=== PATIENT | male | born 1960 | race Caucasian/White ===

== ENCOUNTER 2018-02-25 06:45 | Day surgery (SDC) | payer BC ==
[2018-02-25] MEDS ORDERED: ceFAZolin 2 GM/SWFI 2 GM/20 ML SYR IVP ONE (06:49)
[2018-02-25] MEDS ORDERED: LR 1,000 ML IV ONE (06:52)
[2018-02-25] MEDS ORDERED: LIDOCAINE 1% 2 ML INJ ID PRN (06:52)
[2018-02-25] MEDS ORDERED: BUPIVACAINE 0.5% 30 ML SDV ONE (07:16)
--- NOTE | 2018-02-25 07:17 | PDHPUP ---
History & Physical Update H&P update statement: This history and physical update is based on an assessment of the patient which was completed after admission or registration (within 24 hours), but prior to the surgery/procedure. H&P update: H&P reviewed & patient examined, no change in patient's condition since H&P completed
[2018-02-25] MEDS ORDERED: fentaNYL 100 MCG/2 ML INJ ONE (07:40)
[2018-02-25] MEDS ORDERED: MIDAZOLAM 2 MG/2 ML VIAL ONE (07:41)
[2018-02-25] MEDS ORDERED: PROPOFOL/EMULSION 500 MG/50 ML BOTTLE IV ONE (07:41)
[2018-02-25] MEDS ORDERED: ROCURONIUM 50 MG/5 ML VIAL ONE (07:52)
[2018-02-25] MEDS ORDERED: SUGAMMADEX SODIUM 200 MG/2 ML VIAL IVP ONE (07:52)
[2018-02-25] MEDS ORDERED: DEXAMETHASONE 4 MG/ML VIAL ONE (07:52)
[2018-02-25] MEDS ORDERED: METOCLOPRAMIDE 10 MG/2 ML VIAL ONE (07:52)
[2018-02-25] MEDS ORDERED: KETOROLAC 30 MG/1 ML SDV ONE (07:52)
[2018-02-25] MEDS ORDERED: ONDANSETRON 4 MG/2 ML VIAL ONE (07:52)
[2018-02-25] MEDS ORDERED: LIDOCAINE 2% 5 ML SDV ONE (07:52)
[2018-02-25] MEDS ORDERED: fentaNYL 100 MCG/2 ML INJ IVP PRN (08:23)
[2018-02-25] MEDS ORDERED: DEXAMETHASONE 4 MG/ML VIAL IVP PRN (08:23)
[2018-02-25] MEDS ORDERED: ALBUTEROL 3 ML DEYVIAL IH PRN (08:23)
[2018-02-25] MEDS ORDERED: DIAZEPAM 5 MG/ML 1 ML SYR IVP PRN (08:23)
[2018-02-25] MEDS ORDERED: PROMETHAZINE HCL 25 MG/ML INJ IVP PRN (08:23)
[2018-02-25] MEDS ORDERED: METOCLOPRAMIDE 10 MG/2 ML VIAL IVP PRN (08:23)
[2018-02-25] MEDS ORDERED: LR 500 ML IV PRN (08:23)
[2018-02-25] MEDS ORDERED: HYDROCODONE/APAP 5/325 TAB PO PRN (08:23)
[2018-02-25] MEDS ORDERED: ONDANSETRON 4 MG/2 ML VIAL IVP PRN (08:23)
[2018-02-25] MEDS ORDERED: NALOXONE HCL 0.4 MG/ML INJ IVP PRN (08:23)
[2018-02-25] MEDS ORDERED: ACETAMINOPHEN 500 MG TAB PO PRN (08:23)
--- NOTE | 2018-02-25 08:23 | PDANEPAE ---
ANE Past Medical History - Cardiovascular History Hx Hypertension: Yes Hx Arrhythmias: No Hx Chest Pain: No Hx Coronary Artery / Peripheral Vascular Disease: No Hx CHF / Valvular Disease: No Hx Palpitations: No - Pulmonary History Hx COPD: No Hx Asthma/Reactive Airway Disease: No Hx Recent Upper Respiratory Infection: No Hx Oxygen in Use at Home: No Hx Sleep Apnea: No Sleep Apnea Screening Result - Last Documented: Positive - Neurologic History Hx Cerebrovascular Accident: No Hx Seizures: No Hx Dementia: No - Endocrine History Hx Diabetes: No - Renal History Hx Renal Disorders: No - Liver History Hx Hepatic Disorders: No - Neurological & Psychiatric Hx Hx Neurological and Psychiatric Disorders: No - Cancer History Hx Cancer: No - Congenital Disorder History Hx Congenital Disorders: No - GI History Hx Gastrointestinal Disorders: No - Other Health History Other Health History: none - Chronic Pain History Chronic Pain: No - Surgical History Prior Surgeries: none ANE Review of Systems Review of Systems: - Exercise capacity METS (RN): 5 METS ANE Patient History - Allergies Allergies/Adverse Reactions: No Known Allergies Allergy (Verified 02/23/18 14:15) - Home Medications Home Medications: Hydrocodone Bit/Acetaminophen [Vicodin 5/500] 02/23/18 [Last Taken Unknown] Lisinopril 02/23/18 [Last Taken 02/23/18] - NPO status NPO Since - Liquids (Date): 02/24/18 NPO Since - Liquids (Time): 22:00 NPO Since - Solids (Date): 02/24/18 NPO Since - Solids (Time): 19:30 - Smoking Hx Smoking Status: Never smoked - Family Anes Hx Family Hx Anesthesia Complications: none ANE Labs/Vital Signs - Vital Signs Blood Pressure: 147/98 Heart Rate: 67 Respiratory Rate: 16 O2 Sat (%): 94 Height: 182.88 cm Weight: 81.647 kg ANE Physical Exam - Airway Neck exam: FROM Mallampati Score: Class 1 Mouth exam: normal dental/mouth exam - Pulmonary Pulmonary: no respiratory distress, no rales or rhonchi, clear to auscultation - Cardiovascular Cardiovascular: no murmur, rub, or gallop - ASA Status ASA Status: II ANE Anesthesia Plan Anesthesia Plan: general endotracheal anesthesia
[2018-02-25] MEDS ORDERED: LIDOCAINE HCL 160 MG/4 ML LTA KIT TP ONE (08:40)
[2018-02-25] MEDS ORDERED: ENALAPRILAT DIHYDRATE 1.25 MG/ML VIAL ONE (08:40)
--- NOTE | 2018-02-25 09:07 | POSTOPPROG ---
Post Op Note Date of Operation: 02/25/18 Surgeon: Musa Santos Electrical Controls Technician: Rl Anesthesiologist: Elba Anesthesia: GET(General Endotracheal) Pre-op Diagnosis: Left inguinal hernia Post-op Diagnosis: Bilateral inguinal hernias Indication: Pain Procedure: Laparoscopic BIH Findings: Bilateral direct inguinal hernias Inf/Abcess present in the surg proc area at time of surgery?: No Depth: Organ Space EBL: Minimal
--- NOTE | 2018-02-25 09:54 | POSTANESTH ---
Post Anesthetic Evaluation Cardiovascular Status: Normal, Stable, Similar to Pre-Op Cond Respiratory Status: Normal, Stable, Similar to Pre-op Cond. Level of Consciousness/Mental Status: Can Participate in Eval Pain Control: Adequate, Prn Tx Ordered Nausea/Vomiting Control: Adequate, Prn Tx Ordered Complications Possibly Related to Anesthesia: None Noted
[2018-02-25] MEDS ORDERED: HYDROCODONE/APAP 5/325 TAB ONE (10:37)
[2018-02-25 11:06] VITALS: BP 134/76
--- NOTE | 2018-02-27 18:00 | GOP ---
[f rep st] OPERATIVE REPORT DATE OF OPERATION: SURGEON: Musa Santos MD EMT: Lenka Shine, Nurse Practitioner. ANESTHESIOLOGIST: DR. Arreola. PREOPERATIVE DIAGNOSIS: Left inguinal hernia. POSTOPERATIVE DIAGNOSIS: Bilateral inguinal hernias. PROCEDURE PERFORMED: Laparoscopic bilateral hernia repairs with mesh. FINDINGS: Patient was found to have bilateral direct defects, left greater than right. DESCRIPTION OF PROCEDURE: Patient taken to the operating room, received satisfactory general endotra cheal anesthesia by Dr. Arreola, placed in supine position and prepped and draped in the usual sterile fashion. An infraumbilical incision was made. Dissection was carried to the rectus sheath, which w as incised. A subfascial tunnel was developed in the preperitoneal space. It was dissected free with a balloon dissector which was replaced with CO2 insufflation trocar. Two other trocars placed midli ne under direct vision. Yonas ligament was exposed bilaterally. The cords were mobilized bilateral ly. Peritoneum was dissected off the cord structures. There were no significant indirect sacs. Thom ateral direct defects were exposed. The contents were reduced. Bilateral Covidien polyester mesh pa tches were placed over the inguinal floor and secured in place with AbsorbaTack, securing the Yonas ligament, lacunar ligament, the anterior abdominal wall, the lateral abdominal wall outside the inter nal ring. Both sides were handled in a similar manner. Pneumoperitoneum was released, and trocars w ere removed under direct vision after full hemostasis was achieved. The trocar sites were closed wit h 0 Vicryl for the fascia, 4-0 Monocryl subcuticular stitch for the skin. All layers infiltrated wit h 0.5% Marcaine blood loss negligible. No complications. Taken to recovery room in good condition. /[id number]/MODL
== END 2018-02-25 11:00 | disposition home or self-care (01) ==
LOC: FSGY 06:45
PROVIDERS: ATTEND Surgery
PROC: 0YUA4JZ Supplement Bilateral Inguinal Region with Synthetic Substitute, Percutaneous Endoscopic Approach (ICD-10-PCS; principal; 2018-02-25 08:30)
DX: K40.20 Bilateral inguinal hernia, without obstruction or gangrene, not specified as recurrent (principal); I10 Essential (primary) hypertension
CPT/HCPCS: C1727; C1781; J0690; J1100; J1885; J2250; J2405; J2704; J2765; J3010

== ENCOUNTER 2018-02-26 19:24 | Emergency (ER) | payer BC ==
[2018-02-26 19:35] VITALS: BP 197/103
--- NOTE | 2018-02-26 19:58 | EDPHY ---
H & P Time Seen by Provider: 02/26/18 19:39 HPI/ROS: CHIEF COMPLAINT: Scrotal discoloration HISTORY OF PRESENT ILLNESS: The patient is a 57-year-old male who presents emergency department with concerns of scrotal swelling and discoloration. The patient underwent laparoscopic bilateral hernia repair from Dr. RAKEL Santos yesterday. He noticed discoloration around his scrotum. He felt that was mildly swollen. He has no significant pain. No fever. No difficulty with urination. REVIEW OF SYSTEMS: My complete review of systems is negative except as mentioned in the HPI. Past Medical/Surgical History: Includes hernia repair yesterday. He is not on blood thinners. Smoking Status: Never smoked Physical Exam: Vitals noted GENERAL: Well-appearing, in no acute distress, alert. HEENT: Eyes normal to inspection. RESPIRATORY: Clear to auscultation bilaterally, no rales, rhonchi or wheezing. CVS: Regular rate and rhythm, no rubs, murmurs, or gallops. ABDOMEN: Soft, nontender, nondistended, no organomegaly. : Patient has a ecchymotic scrotum. This appears consistent with surgery yesterday. There is no significant swelling. No palpable testicles. His incision sites are clean dry and intact. SKIN: Normal color, no rash, warm, dry. No pallor. EXTREMITIES: No pedal edema, no joint swelling. NEURO/PSYCH: Normal Constitutional: Initial Vital Signs Temperature (C) 36.6 C 02/26/18 19:32 Heart Rate 74 02/26/18 19:32 Respiratory Rate 18 02/26/18 19:32 Blood Pressure 197/103 H 02/26/18 19:32 O2 Sat (%) 96 02/26/18 19:32 O2 Delivery Mode Room Air Allergies/Adverse Reactions: No Known Allergies Allergy (Verified 02/26/18 19:35) Home Medications: Medication Instructions Recorded Lisinopril 02/23/18 Medical Decision Making ED Course/Re-evaluation: I discussed the findings with the patient. I discussed that this is likely secondary to his surgery. This appears consistent with normal healing from hernia repair. I gave the patient warnings prior to leaving. Will return with worsening symptoms. Differential Diagnosis: My differential includes but is not limited to bruising, testicular torsion, small-bowel obstruction, perforation, hemorrhage Departure - Departure Disposition: Home, Routine, Self-Care Clinical Impression: Status post hernia repair Condition: Good Instructions: Laparoscopic Herniorrhaphy (DC) Additional Instructions: Return with increased swelling, fever, pain or any other concerns. Referrals: Musa Santos MD [Medical Doctor] - 5-7 days, call for appt.
== END 2018-02-26 20:08 | disposition home or self-care (01) ==
DX: N99.89 Other postprocedural complications and disorders of genitourinary system (principal)